=== PATIENT | female | born 1960 | race Caucasian/White ===

== ENCOUNTER 2018-10-09 18:01 | Emergency (ER) | payer MEDICARE, OTHER ==
[~2018-10-09] VITALS: Ht 157.5 cm; Wt 50.8 kg
--- NOTE | 2018-10-09 19:50 | Diagnostic Imaging Report ---
EXAMINATION: Head and cervical spine CT without contrast. HISTORY: Status post fall, hit head, trauma, head and neck pain COMPARISON: None available TECHNIQUE: Multidetector axial images were obtained without contrast from the foramen magnum to the vertex and through the cervical spine. The images were reconstructed using brain and bone algorithms. Thin section brain images were reformatted into coronal and sagittal planes. Dose modulation, iterative reconstruction, and/or weight based adjustment of the mA/kV was utilized to reduce the radiation dose to as low as reasonably achievable. HEAD CT FINDINGS: Skull/scalp: No lytic or blastic lesions. Prominent parieto-occipital vertex region scalp swelling/hematoma without underlying fractures. Parenchyma: A few mostly periventricular white matter hypodensities, most likely nonspecific chronic microvascular ischemic changes. No mass, hemorrhage or CT evidence of acute vascular insult. Brain volume: Mild generalized brain volume, slightly more than what is suspected for patient's age. Ventricles: No hydrocephalus or displacement. Arteries: No density suggestive of thrombus. Dural sinuses: No abnormal density. Extra-axial spaces: No abnormal density. Foramen magnum: No mass, Chiari malformation, or basilar invagination. Sella: No obvious mass. Paranasal/mastoid sinuses: Imaged portions unremarkable. CERVICAL SPINE CT FINDINGS: Alignment:Straightening of the cervical lordosis which may related to multiple spasm or positional. Soft tissues: Normal. Vertebrae: Normal height and density. No acute fracture, infection or neoplasm. Degenerative changes: C1-C2: No abnormalities C2-C3: Small disc osteophyte complex formation, minimal canal narrowing. C3-C4: Mild disc bulge without stenosis. C4-C5: Small disc osteophyte complex formation, bilateral uncovertebral and facet arthrosis. No significant canal or foraminal stenoses. 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 Mild spinal canal and foramina narrowing. C6-C7: Mild visible, no canal or foraminal stenosis. C7-T1: Normal IMPRESSION: Head CT: 1. No acute postraumatic intracranial hemorrhage. 2. Mild chronic microvascular ischemic changes. Cervical spine CT: 1. No acute fractures or dislocations. 2. Chronic degenerative changes as described. Note: Acute post traumatic spinal cord, vascular or ligamentous injury cannot adequately be assessed with CT. Signed by: Dr. Marta Abdul M.D. on 10/09/2018 7:47 PM
--- NOTE | 2018-10-09 20:31 | Diagnostic Imaging Report ---
EXAMINATION: CHEST SINGLE (PORTABLE) INDICATION: ^FALL ^[id number] ^1940 COMPARISON: None FINDINGS: AP view TUBES and LINES: None. LUNGS: Lungs are well inflated. Lungs are clear. There is no evidence of pneumonia or pulmonary edema. PLEURA: No pleural effusion or pneumothorax. HEART AND MEDIASTINUM: The cardiomediastinal silhouette is unremarkable.. BONES AND SOFT TISSUES: No acute osseous lesion. Soft tissues are unremarkable. UPPER ABDOMEN: No free air under the diaphragm. IMPRESSION: No acute thoracic abnormality. Signed by: Dr. Marybeth West M.D. on 10/09/2018 8:27 PM
--- NOTE | 2018-10-09 20:32 | Diagnostic Imaging Report ---
[facility] X-RAY - 1 VIEW HISTORY: ^FALL ^[id number] ^1940 COMPARISON: None available. FINDINGS: Bones: Mildly displaced fracture of the left greater trochanter appears acute. Status post right hip replacement. Hardware is intact and in alignment. Osseous alignment is within normal limits. Joints: Moderate degenerative changes of the left hip. Mild degenerative changes of both sacroiliac joints and L5-S1. Soft tissues: The soft tissues appear unremarkable. IMPRESSION: Mildly displaced fracture of the left greater trochanter. Recommend dedicated left hip and femur x-ray. Signed by: Dr. Marybeth West M.D. on 10/09/2018 8:29 PM
--- NOTE | 2018-10-09 21:15 | NUR ---
SITTER IN ROOM WITH [facility]
[2018-10-09 22:01] LABS: BASOPHILS # (AUTO) 0.1 (0.0-0.1); BASOPHILS % 1.1 % (0.0-1.0); EOSINOPHILS # (AUTO) 0.1 (0.0-0.4); EOSINOPHILS % 1.2 % (0.0-6.0); HEMOGLOBIN 12.4 g/dL (12.0-16.0); LYMPHOCYTES # (AUTO) 1.7 (1.0-3.2); LYMPHOCYTES % 18.5 % (18.0-39.1); MEAN CORPUSCULAR HEMOGLOBIN 35.8 pg (28-32); MEAN CORPUSCULAR HGB CONC 33.5 g/dL (31-35); MEAN CORPUSCULAR VOLUME 106.9 fL (81-99); MONOCYTES # (AUTO) 0.8 (0.2-0.8); MONOCYTES % 8.3 % (4.4-11.3); NEUTROPHILS # (AUTO) 6.5 (2.1-6.9); NEUTROPHILS % 70.3 % (38.7-80.0); PLATELET COUNT 268 x10e3/uL (140-360); RED BLOOD COUNT 3.46 x10e6/uL (3.6-5.1); RED CELL DISTRIBUTION WIDTH 13.1 % (11.7-14.4)
[2018-10-09 22:20] LABS: ALANINE AMINOTRANSFERASE 68 IU/L (0-55); ALBUMIN 3.6 g/dL (3.5-5.0); ALBUMIN/GLOBULIN RATIO 0.8 (0.8-2.0); ALKALINE PHOSPHATASE 320 IU/L (40-150); ANION GAP 17.9 mmol/L (8-16); BLOOD UREA NITROGEN 8 mg/dL (7-26); BUN/CREATININE RATIO 11 (6-25); CALCIUM 9.8 mg/dL (8.4-10.2); CARBON DIOXIDE 20 mmol/L (22-29); CHLORIDE 110 mmol/L (98-107); CREATININE, SERUM 0.74 mg/dL (0.57-1.11); EST GLOMERULAR FILTRATION RATE > 60 ML/MIN (60-); GLUCOSE 95 mg/dL (74-118); SODIUM 145 mmol/L (136-145)
[2018-10-09 22:24] LABS: POTASSIUM 2.9 mmol/L (3.5-5.1)
[2018-10-09] MEDS ORDERED: POTASSIUM CHLORIDE 20 MEQ TAB CR PO STA (22:24)
--- NOTE | 2018-10-09 22:24 | Diagnostic Imaging Report ---
EXAMINATION: Head and cervical spine CT without contrast. HISTORY: Fell again for the second time today, one hour ago, hit to head, frontal laceration. COMPARISON: Head and cervical spine CT performed earlier on the same day TECHNIQUE: Multidetector axial images were obtained without contrast from the foramen magnum to the vertex and through the cervical spine. The images were reconstructed using brain and bone algorithms. Thin section brain images were reformatted into coronal and sagittal planes. Dose modulation, iterative reconstruction, and/or weight based adjustment of the mA/kV was utilized to reduce the radiation dose to as low as reasonably achievable. HEAD CT FINDINGS: Skull/scalp: New right frontal/forehead scalp swelling/laceration. No underlying fractures. Prominent parieto-occipital vertex region scalp swelling/hematoma without underlying fractures. Parenchyma: Persistent mild white matter chronic microvascular ischemic changes. No mass, hemorrhage or CT evidence of acute vascular insult. Brain volume: Again noted moderate generalized brain volume loss. Ventricles: No hydrocephalus or displacement. Arteries: No density suggestive of thrombus. Dural sinuses: No abnormal density. Extra-axial spaces: No abnormal density. Foramen magnum: No mass, Chiari malformation, or basilar invagination. Sella: No obvious mass. Paranasal/mastoid sinuses: Imaged portions unremarkable. CERVICAL SPINE CT FINDINGS: Alignment:Normal alignment and lordosis. Soft tissues: Normal. Vertebrae: Normal height and density. No acute fracture, infection or neoplasm. Degenerative changes: C1-C2: No abnormalities C2-C3: Small disc osteophyte complex formation, minimal canal narrowing. C3-C4: Mild disc bulge without stenosis. C4-C5: Small disc osteophyte complex formation, bilateral uncovertebral and facet arthrosis. No significant canal or foraminal stenoses. 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 Mild spinal canal and foramina narrowing. C6-C7: Mild visible, no canal or foraminal stenosis. C7-T1: Normal IMPRESSION: Head CT: 1. No intracranial hemorrhage. 2. New right frontal scalp swelling/laceration without underlying fractures. 3. Unchanged parieto-occipital scalp hematoma compared to head CT performed earlier on the same day. 4. Stable mild chronic hypervascular ischemic changes. Cervical spine CT: 1. No acute fractures or dislocations, unchanged compared to cervical spine CT performed earlier on the same day. 2. Chronic degenerative changes as described. Note: Acute post traumatic spinal cord, vascular or ligamentous injury cannot adequately be assessed with CT. Signed by: Dr. Marta Abdul M.D. on 10/09/2018 10:20 PM
[2018-10-09] MEDS ORDERED: POTASSIUM CHLORIDE 20MEQ/100ML 100 ML IV ONE (22:30)
--- NOTE | 2018-10-10 00:36 | NUR ---
SPOKE TO [facility], PTS MENTAL BASLINE ORIENTED TO PERSON ONLY; WAS ADMITTED TO [facility] FOR FALL; [facility]OB REPORTS HX ALCOHOLISM
--- NOTE | 2018-10-10 01:48 | NUR ---
attempted to call report to [facility], no answer
== END 2018-10-10 02:00 ==
LOC: ER 18:01 → ERHOLD 10-10 00:43 → UNDOADMIN 10-10 00:43 → ER 10-10 02:00
DX: S00.83XA Contusion of other part of head, initial encounter (principal); W01.0XXA Fall on same level from slipping, tripping and stumbling without subsequent striking against object, initial encounter; Y92.128 Other place in nursing home as the place of occurrence of the external cause
CPT/HCPCS: 36415; 70450; 71045; 72125; 72170; 80053; 82140; 85025; 99284; J3480